=== PATIENT | female | born 1950 | race Caucasian/White ===

== ENCOUNTER → 2021-01-29 10:44 | Outpatient (CLI) | payer MEDICARE, BC, SELFPAY ==
[2021-01-29 11:54] LABS: Hematocrit 37.7 % (36-46); Hemoglobin 12.6 g/dL (12.0-16.0); Mean Corpuscular HGB Conc 33.4 % (30-36); Mean Corpuscular Hemoglobin 29.6 PG (26-34); Mean Corpuscular Volume 88.6 fL (80-100); Platelet Count 323 X10^3/uL (150-400); Red Blood Cell Count 4.25 X10^6/uL (4.0-5.2); Red Cell Distribution Width 12.8 % (11.6-14.8); White Blood Cell Count 6.6 X10^3/uL (4.5-11.0)
[2021-01-29 12:40] LABS: Appearance Urine UA CLEAR; Bilirubin Urine UA NEGATIVE (NEGATIVE); Color Urine UA YELLOW; Glucose Urine UA NEGATIVE (Negative); Ketones Urine UA NEGATIVE (NEGATIVE); Leukocyte Esterase Urine UA NEGATIVE (NEGATIVE); Nitrite Urine UA NEGATIVE (Negative); Occult Blood Urine UA 1+ (Negative); Protein Urine UA NEGATIVE (Negative); Specific Gravity Urine UA <=1.005 (1.000-1.035); Urobilinogen Urine UA 0.2 E.U./dL (0.2)
[2021-01-29 12:44] LABS: Alanine Aminotransferase 18 IU/L (<35); Albumin 4.5 g/dL (3.5-5.0); Albumin Globulin Ratio 1.4 (1.0-2.8); Alkaline Phosphatase 70 U/L (38-126); Aspartate Aminotransferase 29 IU/L (14-36); Bilirubin Total 0.5 mg/dL (0.2-1.3); Blood Urea Nitrogen 21 mg/dL (7-17); Calcium 9.8 mg/dL (8.4-10.2); Carbon Dioxide 21 mmol/L (22-32); Chloride 107 mmol/L (98-107); Cholesterol 177 mg/dL (140-199); Estimated Glomerular Filt Rate > 60.0 mL/min (>60); Globulin 3.3 g/dL (1.7-4.1); Glucose 108 mg/dL (80-110); HDL Cholesterol 70 mg/dL (40-60); HEMOLYSIS < 15 (0-50); LDL Cholesterol Calculated 91 mg/dL (<100); Potassium 4.2 mmol/L (3.4-5.1); Sodium 138 mmol/L (137-145); Total Protein 7.8 g/dL (6.3-8.2); Triglycerides 79 mg/dL (35-150)
[2021-01-29 12:55] LABS: High Sensitivity CRP - Cardiac 6.5 mg/L (1.0-3.0); LDL Cholesterol Direct 82 mg/dL (<100)
[2021-01-29 13:00] LABS: Free T3, Triiodothyronine Free 5.47 pg/mL (2.77-5.27); Free T4, Direct Thyroxine 1.41 ng/dL (0.78-2.19); Progesterone, Total 0.47 ng/mL
[2021-01-29 13:01] LABS: Vitamin D 25 Hydroxy (D3) 52.5 ng/mL (30.0-100.0)
[2021-01-29 13:14] LABS: Thyroid Stimulating Hormone < 0.015 uIU/mL (0.47-4.68)
[2021-01-29 13:16] LABS: Estradiol, Total 16.4 pg/mL
[2021-01-29 13:29] LABS: RBC Urine 0-1/HPF (0-5/HPF); WBC Urine 0-1/HPF (0-5/HPF); pH Urine UA 5.5 (4.5-8.0)
[2021-01-29 13:30] LABS: Bacteria Urine Occasional (0-1); Squamous Epithelial Cell Urine 0-1 /HPF (0-5/HPF)
[2021-01-30 06:17] LABS: Homocysteine 15.4 umol/L (0.0-19.2)
[2021-01-30 07:49] LABS: Dehydroepiandrosterone Sulfate 78.9 ug/dL (20.4-186.6)
[2021-01-30 22:36] LABS: Anti Thyroglobulin Antibody 4.4 IU/mL (0.0-0.9)
[2021-02-03 17:23] LABS: Thyroglobulin Level 9.8 ng/mL (.); Triiodothyronine T3 Reverse 23.4 ng/dL (9.2-24.1)
[2021-02-06 10:58] LABS: Testosterone Free 0.42 ng/dL (0.10-0.85); Testosterone Total 22.3 ng/dL (7.0-40.0)
== END ==
PROVIDERS: PCP Family Medicine; Referring Provider Family Medicine; Visit Provider Family Medicine
DX: Z00.01 Encounter for general adult medical examination with abnormal findings (principal); C78.5 Secondary malignant neoplasm of large intestine and rectum; E03.9 Hypothyroidism, unspecified; E06.3 Autoimmune thyroiditis; N95.1 Menopausal and female climacteric states; R73.01 Impaired fasting glucose
CPT/HCPCS: 36415; 80053; 80061; 81001; 82306; 82542; 82627; 82670; 83090; 83721; 84144; 84402; 84403; 84432; 84439; 84443; 84481; 84482; 85027; 86140; 86800; 87086